=== PATIENT | female | born 1975 | race Caucasian/White ===

== ENCOUNTER 2017-09-20 13:56 | Emergency (ER) | payer OTHER ==
[~2017-09-20] VITALS: Ht 172.7 cm; Wt 62.1 kg
== END 2017-09-20 18:18 | disposition home or self-care (01) ==
LOC: ER 13:56
DX: K64.8 Other hemorrhoids (principal)

== ENCOUNTER 2018-06-27 13:28 | Emergency (ER) | payer OTHER ==
[~2018-06-27] VITALS: Ht 170.2 cm; Wt 67.1 kg
== END 2018-06-27 16:19 | disposition home or self-care (01) ==
LOC: ER 13:28
DX: J06.9 Acute upper respiratory infection, unspecified (principal)

== ENCOUNTER 2023-04-28 11:23 | Emergency (ER) | payer OTHER ==
[~2023-04-28] VITALS: Ht 172.7 cm; Wt 74.8 kg
[2023-04-28] MEDS ORDERED: SYNTHROID50 MCG PO (11:59)
[2023-04-28] MEDS ORDERED: VALSARTAN80 MG PO (12:00)
[2023-04-28] MEDS ORDERED: PEPCID AC20 MG PO (17:42)
[2023-04-28] MEDS ORDERED: DICY20TA PO (17:42)
[2023-04-28] MEDS ORDERED: INTESTINEX680 M1 PO (17:42)
[2023-04-28] MEDS ORDERED: CIPRO500 MG PO (17:42)
== END 2023-04-28 18:04 | disposition home or self-care (01) ==
LOC: ER 11:23
DX: K52.89 Other specified noninfective gastroenteritis and colitis (principal); A08.8 Other specified intestinal infections; I10 Essential (primary) hypertension; E03.8 Other specified hypothyroidism; Z20.822 Contact with and (suspected) exposure to COVID-19

== ENCOUNTER 2023-09-29 08:07 | Emergency (ER) | payer OTHER ==
[~2023-09-29] VITALS: Ht 172.7 cm; Wt 67.6 kg
[~2023-09-29 08:07] MED LIST: CIPRO500 MG PO; DICY20TA PO; INTESTINEX680 M1 PO; PEPCID AC20 MG PO; SYNTHROID50 MCG PO; VALSARTAN80 MG PO
[2023-09-29 10:27] LABS: PH,URINE 5.5 (5.0-8.0); URINE APPEARANCE Clear; URINE BILIRRUBIN Negative (NEGATIVE); URINE BLOOD Small; URINE COLOR Dark Yellow; URINE GLUCOSE Negative (NEGATIVE); URINE LEUKOCYTE Small; URINE NITRATE Positive; URINE PROTEIN Negative (NEGATIVE)
[2023-09-29 10:29] LABS: HEMATOCRIT 38.1 % (36.0-45.00); HEMOGLOBIN 12.8 g/dL (12.0-15.00); MEAN CELL VOLUME 87.7 fL (80.00-100.00); MEAN CORPUSCULAR HEMOGLOBIN 29.4 pg (27.00-32.0); MEAN CORPUSCULAR HGB CONC 33.5 g/dl (32.0-36.0); PLATELET COUNT 202 K/uL (150-450); RED BLOOD COUNT 4.35 M/uL (4.00-6.00); RED CELL DISTRIBUTION WIDTH 14.5 % (11.5-14.5)
[2023-09-29 10:30] LABS: URINE EPITHELIAL CELLS 17.7 uL (0.0-38.8); URINE RBC 29.4 uL (0.0-20.8); URINE WBC 262.2 uL (0.0-23.2)
[2023-09-29 10:37] LABS: URINE BACTERIA > 9821.5 uL (0.0-1933)
[2023-09-29 10:58] LABS: CALCIUM 9.8 mg/dL (8.5-10.1); CREATININE SERUM 0.87 mg/dL (0.55-1.02); GFR 69.49; POTASSIUM 3.33 mEq/L (3.5-5.1)
== END 2023-09-29 11:55 | disposition home or self-care (01) ==
LOC: ER 08:08
PROVIDERS: General Practice
DX: N39.0 Urinary tract infection, site not specified (principal)